=== PATIENT | female | born 1960 | race Caucasian/White ===

== ENCOUNTER 2021-12-26 14:07 | Emergency (ER) | payer OTHER, BC ==
[2021-12-26 14:37] VITALS: TEMP 98.1
[2021-12-26 16:01] LABS: Basophils % (A) 0 %; Eosinophils # (A) 0.1 k/uL (0-0.7); Eosinophils % (A) 1 %; HCT 43.4 % (34.0-46.0); HGB 14.2 gm/dL (11.4-16.0); Lymphocytes # (A) 1.5 k/uL (1.0-4.8); Lymphocytes % (A) 12 %; MCH 29.9 pg (25.0-35.0); MCHC 32.7 g/dL (31.0-37.0); MCV 91.4 fL (80.0-100.0); Mean Platelet Volume 7.7; Monocytes # (A) 0.4 k/uL (0-1.0); Monocytes % (A) 3 %; Neutrophils # (A) 10.1 k/uL (1.3-7.7); Neutrophils % (A) 83 %; Platelet Count 364 k/uL (150-450); RBC 4.74 m/uL (3.80-5.40); RDW 12.4 % (11.5-15.5); WBC 12.2 k/uL (3.8-10.6)
[2021-12-26 16:08] LABS: Albumin 4.9 g/dL (3.5-5.0); Appearance,Urine Turbid (Clear); Bacteria,Urine Moderate /hpf; Calcium 9.5 mg/dL (8.4-10.2); Mucus,Urine Few /hpf; Potassium 4.4 mmol/L (3.5-5.1); RBC,Urine >182 /hpf (0-5); Total Bilirubin 0.4 mg/dL (0.2-1.3); Total Protein 7.6 g/dL (6.3-8.2); WBC,Urine 164 /hpf (0-5)
[2021-12-26 16:14] LABS: Color,Urine Red
[2021-12-26] MEDS ORDERED: PHENAZOPYRIDINE 200 MG TAB PO STA (16:34)
[2021-12-26] MEDS ORDERED: SODIUM CHLORIDE 0.9% 1,000 ML IV ONE (16:34)
[2021-12-26] MEDS ORDERED: cefTRIAXone IN SWFI 1,000 MG/10 ML SYRINGE IVP STA (16:35)
[2021-12-26] MEDS ORDERED: KETOROLAC 15 MG/ML 1 ML VIAL IVP STA (16:36)
[2021-12-26 17:17] VITALS: BP 173/91; PULSE 105; RESP 18
--- NOTE | 2021-12-26 17:28 | CT ---
EXAMINATION TYPE: CT abdomen pelvis w con DATE OF EXAM: 12/26/2021 COMPARISON: None HISTORY: flank pain x [address] DLP: 1143.1 mGycm Automated exposure control for dose reduction was used. CONTRAST: Performed with IV Contrast, patient injected with 90 mL of Isovue 300. Images obtained from the diaphragm to the floor the pelvis with the IV contrast. The lung bases are clear. No pleural effusion. Heart size is normal. No pericardial effusion. Liver s pleen pancreas gallbladder appear intact. The bile ducts are not dilated. There is 3 cm cyst in the p osterior right lobe of the liver. There is no adrenal mass. Kidneys show satisfactory contrast opacification. No hydronephrosis. Delaye d images show normal renal excretion. No retroperitoneal adenopathy. The ureters are not dilated. Bladder distends smoothly. No inguinal hernia. No free fluid in the pelv is. There is no mesenteric edema. No ascites or free air. No sign of a bowel obstruction. No intestinal w all thickening. The lumbar vertebrae are fairly normal alignment. Posterior element are intact. No co mpression fracture. The bony pelvis is intact. The hip joints are intact. IMPRESSION: No acute abnormality of the abdomen and pelvis. Appendix not seen.
--- NOTE | 2021-12-26 18:18 | ED ---
Abdominal Pain HPI - General Chief Complaint: Abdominal Pain Stated Complaint: Kidney Pain Time Seen by Provider: 12/26/21 16:09 Source: patient Mode of arrival: ambulatory Limitations: no limitations - History of Present Illness Initial Comments: 61-year-old female past history of gastric bypass presents to the emergency room in with reported right flank pain. States that the pain started early this morning. She describes it as "back labor". The pain comes in waves. Has associated increased frequency of urination and dysuria. Also reports to h ematuria. No history of kidney stones. Denies vaginal bleeding or discharge. No diarrhea, constipation, black or bloody stools. She did not take any medication for her symptoms. Denies any fevers. No chest pain or shortness of breath. No other alleviating, precipitating laughing factors - Related Data Previous Rx's Medication Instructions Recorded Cephalexin [Keflex] 500 mg PO Q6HR #28 cap 12/26/21 Ketorolac [Toradol] 10 mg PO Q8HR #15 tab 12/26/21 Phenazopyridine [Pyridium] 200 mg PO TID #6 tablet 12/26/21 Allergies Allergy/AdvReac Type Severity Reaction Status Date / Time No Known Allergies Allergy Verified 12/26/21 14:36 Review of Systems ROS Statement: Those systems with pertinent positive or pertinent negative responses have been documented in the HPI. ROS Other: All systems not noted in ROS Statement are negative. Past Medical History Past Medical History: No Reported History History of Any Multi-Drug Resistant Organisms: None Reported Additional Past Surgical History / Comment(s): gastric bypass Past Psychological History: No Psychological Hx Reported Smoking Status: Never smoker Past Alcohol Use History: None Reported Past Drug Use History: None Reported General Exam Limitations: no limitations General appearance: alert, in no apparent distress Head exam: Present: atraumatic, normocephalic, normal inspection Eye exam: Present: normal appearance, PERRL, EOMI. Absent: scleral icterus, conjunctival injection, periorbital swelling ENT exam: Present: normal exam, mucous membranes moist Neck exam: Present: normal inspection. Absent: tenderness, meningismus, lymphadenopathy Respiratory exam: Present: normal lung sounds bilaterally. Absent: respiratory distress, wheezes, rales, rhonchi, stridor Cardiovascular Exam: Present: normal rhythm, tachycardia, normal heart sounds. Absent: systolic murmur, diastolic murmur, rubs, gallop, clicks GI/Abdominal exam: Present: soft, normal bowel sounds. Absent: distended, tenderness, guarding, rebound, rigid Extremities exam: Present: normal inspection, full ROM, normal capillary refill. Absent: tenderness, pedal edema, joint swelling, calf tenderness Back exam: Present: CVA tenderness (R) Neurological exam: Present: alert, oriented X3, CN II-XII intact Psychiatric exam: Present: normal affect, normal mood Skin exam: Present: warm, dry, intact, normal color. Absent: rash Course Vital Signs 12/26/21 12/26/21 14:34 17:16 Temperature 98.1 F Pulse Rate 110 H 105 H Respiratory 20 18 Rate Blood Pressure 167/92 173/91 O2 Sat by Pulse 96 100 Oximetry Medical Decision Making - Medical Decision Making Upon arrival patient was placed in room 26. Thorough history and physical exam was performed. IV access was established. Patient was given a liter bolus of normal saline, 15 mg of Toradol, 200 mg of Pyridium. Laboratory studies are performed and reviewed. Slight white count of 12.2. Urinalysis demonstrates moderate bacteria. CT is performed. No signs of kidney stone. Patient will be treated as a pyelonephritis. Given 1 g of Rocephin. Patient will be discharged home and needs to take her antibiotics as directed. Follow up with her primary care doctor in 2-4 days and return for any new or worsening symptoms. Patient agreeable to the treatment plan discharge home in stable condition - Lab Data Result diagrams: 12/26/21 15:28 12/26/21 15:28 Lab Results 12/26/21 12/26/21 12/26/21 Range/Units 15:28 15:28 15:28 WBC 12.2 H (3.8-10.6) k/uL RBC 4.74 (3.80-5.40) m/uL Hgb 14.2 (11.4-16.0) gm/dL Hct 43.4 (34.0-46.0) % MCV 91.4 (80.0-100.0) fL MCH 29.9 (25.0-35.0) pg MCHC 32.7 (31.0-37.0) g/dL RDW 12.4 (11.5-15.5) % Plt Count 364 (150-450) k/uL MPV 7.7 Neutrophils % 83 % Lymphocytes % 12 % Monocytes % 3 % Eosinophils % 1 % Basophils % 0 % Neutrophils # 10.1 H (1.3-7.7) k/uL Lymphocytes # 1.5 (1.0-4.8) k/uL Monocytes # 0.4 (0-1.0) k/uL Eosinophils # 0.1 (0-0.7) k/uL Basophils # 0.0 (0-0.2) k/uL Sodium 139 (137-145) mmol/L Potassium 4.4 (3.5-5.1) mmol/L Chloride 106 (98-107) mmol/L Carbon Dioxide 22 (22-30) mmol/L Anion Gap 11 mmol/L BUN 22 H (7-17) mg/dL Creatinine 0.99 (0.52-1.04) mg/dL Est GFR (CKD-EPI)AfAm 70 (>60 ml/min/1.73 sqM) Est GFR (CKD-EPI)NonAf 61 (>60 ml/min/1.73 sqM) Glucose 95 (74-99) mg/dL Calcium 9.5 (8.4-10.2) mg/dL Total Bilirubin 0.4 (0.2-1.3) mg/dL AST 29 (14-36) U/L ALT 24 (4-34) U/L Alkaline Phosphatase 108 (38-126) U/L Total Protein 7.6 (6.3-8.2) g/dL Albumin 4.9 (3.5-5.0) g/dL Amylase 48 (30-110) U/L Lipase 76 (23-300) U/L Urine Color Red Urine Appearance Turbid H (Clear) Urine RBC >182 H (0-5) /hpf Urine WBC 164 H (0-5) /hpf Urine Bacteria Moderate H (None) /hpf Urine Mucus Few H (None) /hpf Disposition Clinical Impression: Flank pain, Pyelonephritis Disposition: HOME SELF-CARE Condition: Stable Instructions (If sedation given, give patient instructions): Kidney Infection (ED) Additional Instructions: Please start the antibiotics tomorrow. Take the pain medications as needed. Follow up with your primary care doctor - have them repeat a urine when the antibiotics are gone to ensure the infection has cleared. Return for any new or worsening symptoms Prescriptions: Cephalexin [Keflex] 500 mg PO Q6HR #28 cap Phenazopyridine [Pyridium] 200 mg PO TID #6 tablet Ketorolac [Toradol] 10 mg PO Q8HR #15 tab Is patient prescribed a controlled substance at d/c from ED?: No Referrals: None,Stated [Primary Care Provider] - 1-2 days Time of Disposition: 18:17
== END 2021-12-26 18:40 | disposition home or self-care (01) ==
LOC: EC 14:07
DX: N12 Tubulo-interstitial nephritis, not specified as acute or chronic (principal)
CPT/HCPCS: 36415; 80053; 82150; 83690; 85025; 81001; 87086; 87077; 87186; 74177; 99284; 96374; 96375; 96361; J0696; J1885; Q9967